=== PATIENT | female | born 1990 | race Caucasian/White ===

== ENCOUNTER 2020-07-16 17:22 | Emergency (ER) | payer OTHER ==
[~2020-07-16] VITALS: Ht 167.6 cm; Wt 136.1 kg
--- NOTE | ~2020-07-16 | EMS ---
[address] [address] EMS Patient Care Report Name: JODEE GALLEGOS Room #: PRE Raymond#: [id number] Admission: Attend Phys: Discharge: Date of : [birth year] Report #: [id number] THIS REPORT FOR: //name// Report Transmitted: 07/16/2020 17:12 EMS Care Summary [facility] MED-ACT Incident [phone] @ 07/16/2020 16:47 Incident Location [address] [place] [address] Patient JODEE GALLEGOS Female, 29 Years 1990 Patient Address [address] [place] [address] Patient History Behavioral/Psychiatric Disorder,Diabetes,Substance Abuse,Bipolar II Disorder,Schizophrenia, Patient Allergies No known allergies, Patient Medications None Reported, Chief Complaint i keep dying Disposition Transported No Lights/Evening [place] Reason Cardiac Arrest/ Transported To [facility] Narrative Medic 1154 dispatched to C1 Syncope that changed to a Non-Breather. Arrived on scene with bystanders stating they saw the pt "pass out." Upon arrival, pt found to be alert and oriented and laying on the ground. Pt states that she [address] [address] EMS Patient Care Report Name: JODEE GALLEGOS Room #: PRE Sadi.#: [id number] Admission: Attend Phys: Discharge: Date of : [birth year] Report #: [id number] "keeps dying." Pt states she was on her way to meet with her psychologist. Pt has significant hx of psychiatric illness and substance abuse. Pt states she also will "pass out sometimes" for no apparent reason. Pt stated, "I don't want you guys looking at me I know you're recording this." Pt wishes to be transported to a hospital in [place] because that is where her insurance is. Pt states she wants a psychiatric evaluation at the ER. Pt denies any recent drugs or alcohol. Upon arrival, pt found lying supine in hallway of 's building. Pt alert and oriented but displaying erratic behavior and speaking strangely. No respiratory distress noted. Skin warm, dry, pink. No injuries noted. Pt able to stand and ambulate to ambulance and lay down on cot with no incident. Initial V/S acquired on scene and then moved to ambulance. V/S monitored en route and transported in position of comfort. Camera in pt care compartment turned on due to strange behavior and pt becoming agitated with EMS questioning. Upon arrival, pt able to stand and ambulate from cot to bed with no incident. Report given to ER staff. Medic 1154 clear. Initial Vitals @17:08P: 95,BP: 142/78,SpO2: 98, @17:05P: 98,SpO2: 95, @17:03P: 105,R: 16,BP: 140/82,Pain: 0/10,GCS: 15,Temp: 97.8F,Glucose: 87,SpO2: 96,Revised Trauma: 12, Assessments @17:17MENTAL:Hallucinations,Person Oriented,Place Oriented,Event Oriented,Time Oriented,SKIN:HEENT:Head/Face: No Abnormalities,Eyes: No Abnormalities,Neck/Airway: No Abnormalities,LUNG SOUNDS:General: No Abnormalities,ABDOMEN:General: No Abnormalities,PELVIS//GI:No Abnormalities,EXTREMITIES:Left Arm: No Abnormalities,Right Arm: No Abnormalities,Left Leg: No Abnormalities,Right Leg: No Abnormalities,PULSE:NEURO:No Abnormalities, Impression Behavioral/psychiatric episode Procedures @17:10Surgical Mask on PatientResponse: Unchanged Timeline 16:46,Call Received 16:46,Psap Call 16:47,Dispatched 16:48,En Route 16:59,On Scene [address] [address] EMS Patient Care Report Name: JODEE GALLEGOS Room #: [facility] M.R.#: [id number] Admission: Attend Phys: Discharge: Date of : [birth year] Report #: [id number] 17:01,At Patient 17:02,Depart Scene 17:03,BP: 140/82 M,PULSE: 105,RR: 16 R,SPO2: 96 Ox,ETCO2: ,B,PAIN: 0,GCS: 15, 17:05,BP: / M,PULSE: 98,RR: R,SPO2: 95 Ox,ETCO2: ,BG: ,PAIN: ,GCS: , 17:08,BP: 142/78 M,PULSE: 95,RR: R,SPO2: 98 Ox,ETCO2: ,BG: ,PAIN: ,GCS: , 17:10,Surgical Mask on Patient,Response: Unchanged 17:23,At Destination 17:40,Call Closed Disclaimer v1.1 Copyright 2020 Amanda [employer] This EMS Care Summary contains data elements from the applicable legal record (which may be displayed differently). It is designed to provide pertinent information for the following purposes: continuity of care, clinical quality, and state data reporting. The complete legal record is available to ED staff and administrators of the receiving hospital in [employer] Patient Tracker. All data is provided "as is."
[2020-07-16 18:05] LABS: HEMATOCRIT 38.5 % (37.0-47.0); HEMOGLOBIN 12.7 gm/dL (12.0-15.0); MCH 30.1 pg (26.0-34.0); MCHC 32.9 g/dL (28.0-37.0); MCV 91.5 fL (80.0-100.0); RBC 4.21 mil/uL (4.20-5.00); RDW 13.4 % (10.5-14.5); WBC 11.9 thou/uL (4.0-11.0)
[2020-07-16 18:14] LABS: ANION GAP 11 mmol/L (7-16); BUN 9 mg/dL (7-18); CALCIUM 8.7 mg/dL (8.5-10.1); CHLORIDE 105 mmol/L (98-107); CO2 27 mmol/L (21-32); CREATININE 0.9 mg/dL (0.6-1.0); GLUCOSE 95 mg/dL (74-106); POTASSIUM 3.7 mmol/L (3.5-5.1); SODIUM 143 mmol/L (136-145)
[2020-07-16 18:20] LABS: ALBUMIN 3.5 g/dL (3.4-5.0); SALICYLATE 3.5 mg/dL (2.8-20.0); SGOT 15 U/L (15-37); SGPT 23 U/L (14-59); TOTAL BILIRUBIN 0.2 mg/dL (0.2-1.0); TOTAL PROTEIN 6.7 g/dL (6.4-8.2)
[2020-07-17 04:55] VITALS: BP 135/74
[2020-07-17 05:30] LABS: AMP/METHAMP Negative (Negative); BARBITURATES Negative (Negative); BENZODIAZEPINES Negative (Negative); COCAINE Negative (Negative); METHADONE Negative (Negative); OPIATES Negative (Negative); PCP Negative (Negative)
--- NOTE | 2020-07-17 07:15 | EKG ---
[address] [address] ELECTROCARDIOGRAM REPORT Name: JODEE GALLEGOS Room #: DEP EDWAR Andrade#: [id number] Admission: 07/16/20 Attend Phys: Discharge: 07/17/20 Date of : [birth year] Report #: [id number] 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
== END 2020-07-17 06:03 | disposition home or self-care (01) ==
LOC: ER 17:22
PROVIDERS: Nurse Practitioner Family
DX: F29 Unspecified psychosis not due to a substance or known physiological condition (principal); R45.851 Suicidal ideations; F22 Delusional disorders; F41.9 Anxiety disorder, unspecified; F20.9 Schizophrenia, unspecified; Z20.822 Contact with and (suspected) exposure to COVID-19

== ENCOUNTER 2020-07-17 11:53 | Emergency (ER) | payer OTHER ==
[~2020-07-17] VITALS: Ht 167.6 cm; Wt 72.6 kg
[2020-07-17 13:08] LABS: ALBUMIN 3.1 g/dL (3.4-5.0); ANION GAP 11 mmol/L (7-16); BUN 11 mg/dL (7-18); CALCIUM 8.5 mg/dL (8.5-10.1); CHLORIDE 107 mmol/L (98-107); CO2 21 mmol/L (21-32); CREATININE 0.9 mg/dL (0.6-1.0); GLUCOSE 87 mg/dL (74-106); SGOT 20 U/L (15-37); SGPT 21 U/L (14-59); SODIUM 139 mmol/L (136-145); TOTAL BILIRUBIN 0.2 mg/dL (0.2-1.0); TOTAL PROTEIN 6.5 g/dL (6.4-8.2)
[2020-07-17 13:25] LABS: SALICYLATE 3.3 mg/dL (2.8-20.0)
[2020-07-17 14:09] LABS: ABSOLUTE NEUTROPHILS 8.7 thou/uL (1.4-8.2); BASOPHILS 0.5 % (0.0-2.0); EOSINOPHILS 1.3 % (0.0-3.0); HEMATOCRIT 36.8 % (37.0-47.0); LYMPHOCYTES 24.9 % (24.0-44.0); MCH 29.8 pg (26.0-34.0); MCHC 32.5 g/dL (28.0-37.0); MCV 91.8 fL (80.0-100.0); POLYS 69.3 % (36.0-66.0); RBC 4.01 mil/uL (4.20-5.00); WBC 12.5 thou/uL (4.0-11.0)
[2020-07-17 15:01] LABS: PLATELET COUNT 190 thou/uL (150-400); PLATELET ESTIMATE NORMAL
[2020-07-17 16:41] VITALS: BP 122/87
== END 2020-07-17 16:43 | disposition home or self-care (01) ==
LOC: ER 11:53
PROVIDERS: Emergency Medicine
DX: F29 Unspecified psychosis not due to a substance or known physiological condition (principal); F41.9 Anxiety disorder, unspecified; F17.210 Nicotine dependence, cigarettes, uncomplicated